=== PATIENT | female | born 1985 | race Caucasian/White ===

== ENCOUNTER 2016-06-28 07:33 | Emergency (ER) | payer SELFPAY ==
[~2016-06-28] VITALS: Ht 162.6 cm; Wt 61.7 kg
[~2016-06-28 07:33] MED LIST: HYDR-971 PO; NITR100C62 PO
[2016-06-28] MEDS ORDERED: NAPROXEN 500 MG TABLET PO STA (07:49)
--- NOTE | 2016-06-28 07:53 | PHYS DOC ---
Past Medical History Past Medical History: UTI Past Surgical History: Other Additional Past Surgical Histo: Alcohol Use: None Drug Use: None Adult General Chief Complaint Chief Complaint: FLANK PAIN HPI HPI Patient is a 30 year old female with history of UTIs and kidney stones presents today with urgency with no frequency or dysuria that began a month ago and right flank pain. Patient denies any fever nausea vomiting. Denies any hematuria. Denies any chance she is . She states she believes she has a UTI. She states she had her last UTI in March and she was treated and symptoms were gone. She states this does not feel like her regular kidney stone pain. Patient would like to be checked for yeast infection as well. She denies any concerns for STDs, she states she's had intermittent white discharge for 1 month. she states she hates water and does not drink much of it. Review of Systems Review of Systems Constitutional: see HPI Eyes: Denies change in visual acuity, redness, or eye pain [] HENT: Denies nasal congestion or sore throat [] Respiratory: Denies cough or shortness of breath [] Cardiovascular: No additional information not addressed in HPI [] GI:see hPI :urgency Musculoskeletal: Denies back pain or joint pain [] Integument: Denies rash or skin lesions [] Neurologic: Denies headache, focal weakness or sensory changes [] Endocrine: Denies polyuria or polydipsia [] Current Medications Current Medications Current Medications Medications (Trade) Dose Ordered Sig/Charla Start Time Stop Time Status Last Admin Dose Admin Naproxen (Naprosyn) 500 mg 1X STAT 06/28/16 07:49 06/28/16 08:08 DC 06/28/16 09:00 500 MG Phenazopyridine HCl (Pyridium) 200 mg 1X ONCE 06/28/16 08:00 06/28/16 08:08 DC 06/28/16 09:00 200 MG Allergies Allergies Allergies Coded Allergies Type Severity Reaction Last Updated Verified No Known Drug Allergies 04/01/16 No Physical Exam Physical Exam Constitutional: Well developed, well nourished, no acute distress, non-toxic appearance. [] HENT: Normocephalic, atraumatic, bilateral external ears normal, oropharynx moist, no oral exudates, nose normal. [] Eyes: PERRLA, EOMI, conjunctiva normal, no discharge. [] Neck: Normal range of motion, no tenderness, supple, no stridor. [] Cardiovascular:Heart rate regular rhythm, no murmur [] Lungs & Thorax: Bilateral breath sounds clear to auscultation [] Abdomen: Bowel sounds normal, soft, no tenderness, no masses, no pulsatile masses. [] Skin: Warm, dry, no erythema, no rash. [] Back: No tenderness, no CVA tenderness. [] Extremities: No tenderness, no cyanosis, no clubbing, ROM intact, no edema. [] Neurologic: Alert and oriented X 3, normal motor function, normal sensory function, no focal deficits noted. [] Psychologic: Affect normal, judgement normal, mood normal. [] Current Patient Data Vital Signs Vital Signs Date Time Temp Pulse Resp B/P Pulse Ox O2 Delivery O2 Flow Rate FiO2 06/28/16 07:55 97.7 75 18 95 Room Air 97.7 Lab Values Laboratory Tests Test 06/28/16 07:41 Urine Collection Type Unknown Urine Color Yellow Urine Clarity Clear Urine pH 5.5 Urine Specific [place] 1.015 Urine Protein Negativemg/dL (NEG-TRACE) Urine Glucose (UA) Negativemg/dL (NEG) Urine Ketones (Stick) Negativemg/dL (NEG) Urine Blood Negative (NEG) Urine Nitrite Negative (NEG) Urine Bilirubin Negative (NEG) Urine Urobilinogen Dipstick 0.2mg/dL (0.2 mg/dL) Urine Leukocyte Esterase Negative (NEG) Urine RBC 0/HPF (0-2) Urine WBC 0/HPF (0-4) Urine Squamous Epithelial Cells Mod/LPF Urine Bacteria 0/HPF (0-FEW) Urine Mucus Slight/LPF Urine Test Negative (NEG) Microbiology 06/28/16 Wet Prep - Final, Complete Microbiology 06/28/16 Wet Prep - Final, Complete EKG EKG [] Radiology/Procedures Radiology/Procedures [] Course & Med Decision Making Course & Med Decision Making Pertinent Labs and Imaging studies reviewed. (See chart for details) Patient presents today with a UTI symptoms of urgency no frequency or dysuria. She is also complaining of right flank pain. Negative urine hCG, urine analysis is negative for infection, no blood in her urine. Wet prep is negative for any acute findings. I highly suspect patient's right flank pain is mostly skeletal. Patient herself states she never drinks water. Encouraged her to go home and push fluids. Discharged with Pyridium naproxen and Flexeril. We did talk about the possibility of CT of the abdomen and pelvic. Patient has stated the pain she has does not feel like her kidney stone pain. Anabell Disclaimer Anabell Disclaimer This electronic medical record was generated, in whole or in part, using a voice recognition dictation system. Departure Departure Impression: Primary Impression: Urgency of urination Additional Impression: Right flank pain Disposition: HOME, SELF-CARE Condition: STABLE Referrals: NO PCP (PCP) follow up with your doctor in one week Patient Instructions: Flank Pain, [id number] Additional Instructions: You were seen for urgency and right flank pain. Your urine has no infection. You do not have Bacterial vaginosis nor yeast infection. Push fluids. Take the prescribed medicines as needed for pain. Follow up with your doctor in one week if symptoms continue. Scripts Cyclobenzaprine Hcl 10 Mg Tablet1 Tab PO TID #30 TAB Prov:WANDA SORIANO APRN 06/28/16 Naproxen 500 Mg Tablet.dr1 Tab PO BID #60 TAB Ref 2 Prov:WANDA SORIANO APRN 06/28/16 Phenazopyridine Hcl (Pyridium)200 Mg [id number] Mg PO TID #9 TAB Prov:WANDA SORIANO APRN 06/28/16 Problem Qualifiers WANDA SORIANO APRN Jun 28, 2016 07:52
[2016-06-28 07:55] VITALS: BP 121/65
[2016-06-28] MEDS ORDERED: PHENAZOPYRIDINE 200 MG TABLET. PO ONE (08:00)
[2016-06-28 08:04] LABS: BILIRUBIN,URINE NEGATIVE (NEG); GLUCOSE,URINE NEGATIVE (NEG); NITRITE,URINE NEGATIVE (NEG); PH,URINE 5.5; PROTEIN,URINE NEGATIVE (NEG-TRACE); UROBILINOGEN,URINE 0.2 mg/dL (0.2 mg/dL)
[2016-06-28 08:10] LABS: BACTERIA,URINE 0 /HPF (0-FEW); RBC,URINE 0 /HPF (0-2); SQUAMOUS EPITHELIAL CELL,UR MOD /LPF; WBC,URINE 0 /HPF (0-4)
[2016-06-28 08:18] LABS: NEG OBC UR NEG; POS OBC UR POS
[2016-06-28] MEDS ORDERED: NAPR500T8 PO (09:11)
[2016-06-28] MEDS ORDERED: PHEN-318 PO (09:11)
[2016-06-28] MEDS ORDERED: CYCL10TA2 PO (09:11)
== END 2016-06-28 09:18 | disposition home or self-care (01) ==
LOC: ER 07:33
DX: R39.15 Urgency of urination (principal); R10.9 Unspecified abdominal pain; Z87.442 Personal history of urinary calculi; Z87.440 Personal history of urinary (tract) infections
CPT/HCPCS: 81001; 81025; 87491; 87591; 99284; Q0111

== ENCOUNTER 2016-09-28 08:02 | Emergency (ER) | payer OTHER ==
[~2016-09-28] VITALS: Ht 162.6 cm; Wt 62.3 kg
[~2016-09-28 08:02] MED LIST changes: +CYCL10TA2 PO; +NAPR500T8 PO; +PHEN-318 PO
[2016-09-28 08:33] VITALS: BP 144/76
[2016-09-28] MEDS ORDERED: CYCL10TA2 PO (09:06)
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
== END 2016-09-28 09:26 | disposition home or self-care (01) ==
LOC: ER 08:02
DX: S16.1XXA Strain of muscle, fascia and tendon at neck level, initial encounter (principal); S29.012A Strain of muscle and tendon of back wall of thorax, initial encounter; M25.512 Pain in left shoulder; R07.89 Other chest pain; V89.2XXA Person injured in unspecified motor-vehicle accident, traffic, initial encounter; Y93.89 Activity, other specified; Y99.8 Other external cause status; Y92.89 Other specified places as the place of occurrence of the external cause
CPT/HCPCS: 99283

== ENCOUNTER 2017-04-01 07:12 | Emergency (ER) | payer OTHER ==
[~2017-04-01] VITALS: Ht 162.6 cm; Wt 61.2 kg
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
[2017-04-01 08:21] LABS: BACTERIA,URINE FEW /HPF (0-FEW); BILIRUBIN,URINE NEGATIVE (NEG); GLUCOSE,URINE NEGATIVE (NEG); NITRITE,URINE NEGATIVE (NEG); PROTEIN,URINE NEGATIVE (NEG-TRACE); RBC,URINE 0 /HPF (0-2); SQUAMOUS EPITHELIAL CELL,UR FEW /LPF; UROBILINOGEN,URINE 0.2 mg/dL (0.2 mg/dL)
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
[2017-04-01] MEDS ORDERED: IBUP-1060 PO (08:30)
[2017-04-01] MEDS ORDERED: NITR100C62 PO (08:30)
[2017-04-01] MEDS ORDERED: CYCL5TAB PO (08:30)
[2017-04-01 08:47] VITALS: BP 120/87
[2017-05-31] MEDS ORDERED: PROM25SU32 PO (09:40)
== END 2017-04-01 08:50 | disposition home or self-care (01) ==
LOC: ER 07:12
DX: S16.1XXA Strain of muscle, fascia and tendon at neck level, initial encounter (principal); N39.0 Urinary tract infection, site not specified; V43.52XA Car driver injured in collision with other type car in traffic accident, initial encounter; Y93.I9 Activity, other involving external motion; Y92.410 Unspecified street and highway as the place of occurrence of the external cause; Y99.8 Other external cause status
CPT/HCPCS: 72040; 81001; 81025; 99285

== ENCOUNTER 2017-05-29 07:42 | Emergency (ER) | payer OTHER ==
[~2017-05-29 07:42] MED LIST changes: +CYCL5TAB PO; +IBUP-1060 PO
--- NOTE | 2017-05-29 09:08 | PHYS DOC ---
Past Medical History Past Medical History: UTI Past Surgical History: Other Additional Past Surgical Histo: Alcohol Use: Occasionally Drug Use: None Adult General Chief Complaint Chief Complaint: VOMITING IN HPI HPI Patient is a 31 year old female presents the ED complaining of abdominal cramping times one day. Patient states she has also been vomiting for the last 5 days. Nonbloody, nonbilious. Describes the pain as cramping. Rates the pain as 5/10. States that it is intermittent. Denies chest pain, shortness of breath, vaginal bleeding/discharge, dysuria, hematuria, weakness, or headache. Review of Systems Review of Systems Constitutional: Denies fever or chills [] Eyes: Denies change in visual acuity, redness, or eye pain [] HENT: Denies nasal congestion or sore throat [] Respiratory: Denies cough or shortness of breath [] Cardiovascular: No additional information not addressed in HPI [] GI: Complains of abdominal cramping and vomiting. Denies bloody stools or diarrhea [] : Denies dysuria or hematuria [] Musculoskeletal: Denies back pain or joint pain [] Integument: Denies rash or skin lesions [] Neurologic: Denies headache, focal weakness or sensory changes [] Endocrine: Denies polyuria or polydipsia [] All other systems were reviewed and found to be within normal limits, except as documented in this note. Current Medications Current Medications Current Medications Medications (Trade) Dose Ordered Sig/Charla Start Time Stop Time Status Last Admin Dose Admin Ondansetron HCl (Zofran) 4 mg 1X ONCE 05/29/17 10:30 05/29/17 10:31 DC 05/29/17 10:31 4 MG Potassium Chloride (Klor-Con) 40 meq 1X ONCE 05/29/17 10:15 05/29/17 10:16 DC Sodium Chloride 1,000 ml @ 1,000 mls/hr 1X ONCE 05/29/17 10:15 05/29/17 11:14 DC 05/29/17 10:32 1,000 MLS/HR Allergies Allergies Allergies Coded Allergies Type Severity Reaction Last Updated Verified No Known Drug Allergies 04/01/16 No Physical Exam Physical Exam Constitutional: Well developed, well nourished, no acute distress, non-toxic appearance. [] HENT: Normocephalic, atraumatic, bilateral external ears normal, oropharynx moist, no oral exudates, nose normal. [] Eyes: PERRLA, EOMI, conjunctiva normal, no discharge. [] Neck: Normal range of motion, no tenderness, supple, no stridor. [] Cardiovascular:Heart rate regular rhythm, no murmur [] Lungs & Thorax: Bilateral breath sounds clear to auscultation [] Abdomen: Bowel sounds normal, soft, no tenderness, no masses, no pulsatile masses. [] Refused exam. Skin: Warm, dry, no erythema, no rash. [] Back: No tenderness, no CVA tenderness. [] Extremities: No tenderness, no cyanosis, no clubbing, ROM intact, no edema. [] Neurologic: Alert and oriented X 3, normal motor function, normal sensory function, no focal deficits noted. [] Psychologic: Affect normal, judgement normal, mood normal. [] Current Patient Data Vital Signs Vital Signs Date Time Temp Pulse Resp B/P (MAP) Pulse Ox O2 Delivery O2 Flow Rate FiO2 05/29/17 10:44 98.5 91 17 119/75 (90) 100 Room Air 98.5 Lab Values Laboratory Tests Test 05/29/17 08:30 05/29/17 08:55 05/29/17 09:01 White Blood Count 19.1 x10^3/uL (4.0-11.0) H Red Blood Count 5.16 x10^6/uL (3.50-5.40) Hemoglobin 15.7 g/dL (12.0-15.5) H Hematocrit 47.4 % (36.0-47.0) H Mean Corpuscular Volume 92 fL (79-100) Mean Corpuscular Hemoglobin 30 pg (25-35) Mean Corpuscular Hemoglobin Concent 33 g/dL (31-37) Red Cell Distribution Width 13.1 % (11.5-14.5) Platelet Count 456 x10^3/uL (140-400) H Neutrophils (%) (Auto) 86 % (31-73) H Lymphocytes (%) (Auto) 9 % (24-48) L Monocytes (%) (Auto) 5 % (0-9) Eosinophils (%) (Auto) 0 % (0-3) Basophils (%) (Auto) 0 % (0-3) Neutrophils # (Auto) 16.3 x10^3uL (1.8-7.7) H Lymphocytes # (Auto) 1.7 x10^3/uL (1.0-4.8) Monocytes # (Auto) 1.0 x10^3/uL (0.0-1.1) Eosinophils # (Auto) 0.0 x10^3/uL (0.0-0.7) Basophils # (Auto) 0.1 x10^3/uL (0.0-0.2) Segmented Neutrophils % 89 % (35-66) H Band Neutrophils % 2 % (0-9) Lymphocytes % 6 % (24-48) L Monocytes % 3 % (0-10) Platelet Estimate Increased (ADEQUATE) Maternal Serum HCG Beta Subunit 67685 mIU/mL (0-5) H Sodium Level 139 mmol/L (136-145) Potassium Level 3.3 mmol/L (3.5-5.1) L Chloride Level 100 mmol/L (98-107) Carbon Dioxide Level 25 mmol/L (21-32) Anion Gap 14 (6-14) Blood Urea Nitrogen 13 mg/dL (7-20) Creatinine 0.9 mg/dL (0.6-1.0) Estimated GFR (Cockcroft-Gault) 73.0 BUN/Creatinine Ratio 14 (6-20) Glucose Level 123 mg/dL (70-99) H Calcium Level 11.1 mg/dL (8.5-10.1) H Total Bilirubin 0.7 mg/dL (0.2-1.0) Aspartate Amino Transferase (AST) 14 U/L (15-37) L Alanine Aminotransferase (ALT) 11 U/L (14-59) L Alkaline Phosphatase 68 U/L (46-116) Total Protein 9.1 g/dL (6.4-8.2) H Albumin 5.3 g/dL (3.4-5.0) H Albumin/Globulin Ratio 1.4 (1.0-1.7) Urine Collection Type Void Urine Color Andra Urine Clarity Cloudy Urine pH 8.0 Urine Specific [place] >=1.030 Urine Protein 100 mg/dL (NEG-TRACE) Urine Glucose (UA) Negative mg/dL (NEG) Urine Ketones (Stick) >=80 mg/dL (NEG) Urine Blood Negative (NEG) Urine Nitrite Negative (NEG) Urine Bilirubin Negative (NEG) Urine Urobilinogen Dipstick 0.2 mg/dL (0.2 mg/dL) Urine Leukocyte Esterase Small (NEG) Urine RBC Rare /HPF (0-2) Urine WBC 1-4 /HPF (0-4) Urine Squamous Epithelial Cells Many /LPF Urine Bacteria Mod /HPF (0-FEW) Urine Mucus Marked /LPF Urine Yeast Present /HPF POC Urine HCG, Qualitative Hcg positive (Negative) Laboratory Tests 05/29/17 08:30 Laboratory Tests 05/29/17 08:30 EKG EKG [] Radiology/Procedures Radiology/Procedures PROCEDURE: OB <14 WKS W/TV OB <14 WKS W/TV Clinical Indication: 31-year-old female with LLQ pain/NAUSEA/VOMITING in Comparison: None. Technique: Transverse and longitudinal sonography of the pelvis is performed utilizing transabdominal and transvaginal transducers. Findings: Transabdominal imaging demonstrates an anteflexed uterus measuring 8.2 x 5.0 x 5.3 cm. An intrauterine fluid collection is seen suggestive of a gestational sac. Neither ovary is visualized. No free fluid is seen. Transvaginal imaging redemonstrates an intrauterine fluid collection consistent with a gestational sac. A yolk sac is visualized within the gestational sac, as well as a pole measuring 0.4 cm, corresponding with an ultrasound gestational age of 6 weeks 0 days. A heart rate of 107 bpm is documented. No myometrial or cervical abnormality is seen in the provided images. The right ovary is visualized measuring 2.6 x 1.2 x 1.4 cm, with internal blood flow documented. The left ovary is visualized measuring 3.9 x 2.2 x 1.5 cm, with internal blood flow documented. A rounded hypoechoic mass is seen extending off the inferior left ovary measuring 2.2 cm. Some internal blood flow is documented. No extraovarian adnexal masses are seen. No free fluid is seen within the provided images. IMPRESSION: 1. Single live intrauterine gestation with ultrasound gestational age of 6 weeks 0 days. heart rate of 107 bpm documented. 2. Hypoechoic, possibly solid appearing mass in the inferior left ovary. While this may represent the corpus luteal cyst, it is not a typical appearance. No adnexal mass seen. Consider follow-up ultrasound to document stability/resolution.[] Course & Med Decision Making Course & Med Decision Making Pertinent Labs and Imaging studies reviewed. (See chart for details) []Discussed lab and ultrasound findings with patient. Patient has been vomiting for the last 5 days. States she is feeling much better and wants to go home. Elevated white count seems likely due to stress reaction. Patient given 2 L of fluids and antinausea medication in the ED. Patient tolerating by mouth. Abdomen is soft nontender nondistended. No peritoneal signs. Discussed the importance for follow-up with OBSTETRICIAN GYNECOLOGIST in 1-2 days. Patient told that she needs repeat ultrasound imaging and following of her beta hCG quantitative this next week. Patient sitting in room eating Jell-O laughing and talking on phone. Discussed the importance of follow-up and reasons to return to the ED. Patient understands and agrees with plan. Discussed case with attending physician. Agrees with evaluation and plan. Dragon Disclaimer Dragon Disclaimer This electronic medical record was generated, in whole or in part, using a voice recognition dictation system. Departure Departure Impression: Primary Impression: Vomiting during Additional Impression: Urinary tract infection Disposition: 01 HOME, SELF-CARE Condition: IMPROVED Referrals: NO PCP (PCP) JAYLAN PIERSON MD Patient Instructions: Abdominal Pain During Scripts Ondansetron (ZOFRAN ODT) 4 Mg Tab.rapdis 1 TAB SL Q8HRS, #10 TAB Prov: ZABRINA ALLEN 05/29/17 Nitrofurantoin Monohyd/M-Cryst (MACROBID 100 MG CAPSULE) 100 Mg Capsule 1 CAP PO BID, #14 CAP Prov: ZABRINA ALLEN 05/29/17 Problem Qualifiers ZABRINA ALLEN May 29, 2017 09:07
[2017-05-29] MEDS ORDERED: IV NORMAL SALINE 1000ML BAG 1,000 ML IV SCH (09:15)
[2017-05-29] MEDS ORDERED: ONDANSETRON PF 4 MG/2 ML VIAL. IV ONE ×2 (09:15→10:30)
[2017-05-29 09:34] LABS: BASO # 0.1 x10^3/uL (0.0-0.2); BASO % 0 % (0-3); EOS % 0 % (0-3); HEMATOCRIT 47.4 % (36.0-47.0); HEMOGLOBIN 15.7 g/dL (12.0-15.5); LYMPH # 1.7 x10^3/uL (1.0-4.8); LYMPH % 9 % (24-48); MEAN CORPUSCULAR HEMOGLOBIN 30 pg (25-35); MEAN CORPUSCULAR HGB CONC 33 g/dL (31-37); MEAN CORPUSCULAR VOLUME 92 fL (79-100); MONO % 5 % (0-9); NEUT % 86 % (31-73); PLATELET COUNT 456 x10^3/uL (140-400); RED BLOOD COUNT 5.16 x10^6/uL (3.50-5.40); RED CELL DISTRIBUTION WIDTH 13.1 % (11.5-14.5); WHITE BLOOD COUNT 19.1 x10^3/uL (4.0-11.0)
[2017-05-29 09:40] LABS: BILIRUBIN,URINE NEGATIVE (NEG); GLUCOSE,URINE NEGATIVE (NEG); NITRITE,URINE NEGATIVE (NEG); PROTEIN,URINE 100 mg/dL (NEG-TRACE); UROBILINOGEN,URINE 0.2 mg/dL (0.2 mg/dL)
[2017-05-29 09:42] LABS: CALCIUM 11.1 mg/dL (8.5-10.1); CREATININE 0.9 mg/dL (0.6-1.0); POTASSIUM 3.3 mmol/L (3.5-5.1)
[2017-05-29 09:43] LABS: BACTERIA,URINE MOD /HPF (0-FEW); RBC,URINE RARE /HPF (0-2); SQUAMOUS EPITHELIAL CELL,UR MANY /LPF; YEAST,URINE PRESENT /HPF
[2017-05-29 09:47] LABS: ALBUMIN 5.3 g/dL (3.4-5.0); ALBUMIN/GLOBULIN RATIO 1.4 (1.0-1.7); TOTAL BILIRUBIN 0.7 mg/dL (0.2-1.0); TOTAL PROTEIN 9.1 g/dL (6.4-8.2)
--- NOTE | 2017-05-29 10:06 | RAD ---
OB <14 WKS W/TV Clinical Indication: 31-year-old female with LLQ pain/NAUSEA/VOMITING in Comparison: None. Technique: Transverse and longitudinal sonography of the pelvis is performed utilizing transabdominal and transvaginal transducers. Findings: Transabdominal imaging demonstrates an anteflexed uterus measuring 8.2 x 5.0 x 5.3 cm. An intrauterine fluid collection is seen suggestive of a gestational sac. Neither ovary is visualized. No free fluid is seen. Transvaginal imaging redemonstrates an intrauterine fluid collection consistent with a gestational sac. A yolk sac is visualized within the gestational sac, as well as a pole measuring 0.4 cm, corresponding with an ultrasound gestational age of 6 weeks 0 days. A heart rate of 107 bpm is documented. No myometrial or cervical abnormality is seen in the provided images. The right ovary is visualized measuring 2.6 x 1.2 x 1.4 cm, with internal blood flow documented. The left ovary is visualized measuring 3.9 x 2.2 x 1.5 cm, with internal blood flow documented. A rounded hypoechoic mass is seen extending off the inferior left ovary measuring 2.2 cm. Some internal blood flow is documented. No extraovarian adnexal masses are seen. No free fluid is seen within the provided images. IMPRESSION: 1. Single live intrauterine gestation with ultrasound gestational age of 6 weeks 0 days. heart rate of 107 bpm documented. 2. Hypoechoic, possibly solid appearing mass in the inferior left ovary. While this may represent the corpus luteal cyst, it is not a typical appearance. No adnexal mass seen. Consider follow-up ultrasound to document stability/resolution.
[2017-05-29] MEDS ORDERED: IV NORMAL SALINE 1000ML BAG 1,000 ML IV ONE (10:15)
[2017-05-29] MEDS: POTASSIUM CHLORIDE 20 MEQ TABLET.ER. PO ONE ×2 (10:30→10:32)
[2017-05-29 10:44] VITALS: BP 119/75
[2017-05-29] MEDS ORDERED: ONDA4TAB10 SL (11:14)
[2017-05-29] MEDS ORDERED: NITR100C62 PO (11:14)
[2017-05-29 11:18] LABS: PLT ESTIMATE INCREASED (ADEQUATE)
[2017-05-31] MEDS ORDERED: PROM25SU32 PO (09:40)
== END 2017-05-29 11:45 | disposition home or self-care (01) ==
LOC: ER 07:42
DX: O23.41 Unspecified infection of urinary tract in pregnancy, first trimester (principal); O21.9 Vomiting of pregnancy, unspecified; Z3A.01 Less than 8 weeks gestation of pregnancy
CPT/HCPCS: 36415; 76801; 76817; 80053; 81001; 81025; 84702; 85007; 85025; 86900; 86901; 96361; 96374; 96376; 99285; J2405; J7030

== ENCOUNTER → 2020-04-02 | Outpatient (CLI) | payer MEDICAID ==
[2017-07-04 19:30] VITALS: BP 114/73
[~2020-04-02] MED LIST changes: +HYDR-3164 PO; -HYDR-971 PO; +ONDA4TAB10 SL; +PROM25SU32 PO
--- NOTE | 2020-04-02 15:38 | KCIC ---
CT Abdomen and Pelvis without contrast History: Right flank pain, urinary tract infection, urinary urgency, history of stones, back pain Technique: Noncontrast CT imaging was performed of the abdomen and pelvis. Multiplanar images are reviewed. Exposure: One or more of the following individualized dose reduction techniques were utilized for this examination: 1. Automated exposure control 2. Adjustment of the mA and/or kV according to patient size 3. Use of iterative reconstruction technique. Comparison: February 13, 2013 Findings: No convincing ureteral calculus is identified of either side. There is no hydronephrosis of either kidney. There is very small about 1 mm mid to inferior right kidney renal calculus. There is also small about 1 mm mid to superior left renal calculus. Accurate evaluation of abdominal visceral organs is limited without intravenous contrast. There is no obvious abnormality of the spleen, liver, or pancreas. There is no adrenal nodularity. Gallbladder is present without obvious intraluminal abnormality by CT. Accurate evaluation of bowel is limited without oral contrast. There is no significant free air, free fluid, bowel dilatation. There is no significant inflammatory type change about the bowel. There is retained stool greater of the right colon. There is mild colonic diverticulosis. Stomach is somewhat distended. There is likely stool distended appendix, caliber somewhat prominent about 0.7 cm, no significant adjacent inflammatory change. There is a 2.7 cm likely cyst of the left adnexa. There is a very small fat-containing umbilical hernia, no internal bowel. Impression: 1. No hydronephrosis is identified. There are very small bilateral renal calculi. No convincing ureteral calculus is identified. 2. Appendix caliber is somewhat prominent and distended with stool although no adjacent inflammatory-type change. Correlation with clinical symptoms and laboratory findings is advised. 3. There is likely cyst of the left adnexa. 4. There is mild colonic diverticulosis. Electronically signed by: Brody Maloney MD (04/02/2020 3:35 PM) [facility]
== END ==
LOC: KCIC CT 14:44
PROVIDERS: ATTEND Nurse Practitioner Family
DX: K57.30 Diverticulosis of large intestine without perforation or abscess without bleeding (principal); N20.0 Calculus of kidney
CPT/HCPCS: 74176

== ENCOUNTER → 2021-07-24 | Outpatient (CLI) | payer MEDICAID ==
[2017-07-04 19:30] VITALS: BP 114/73
[~2021-07-24] MED LIST changes: +CYCL10TA19 PO; -CYCL10TA2 PO
--- NOTE | 2021-07-24 15:37 | RAD ---
EXAM: Pelvic sonogram. HISTORY: Pelvic pressure. TECHNIQUE: Transabdominal and transvaginal sonographic imaging of the pelvis performed. COMPARISON: None. FINDINGS: The uterus measures 10.0 x 5.1 x 4.9 cm. The endometrial stripe measures 1.1 cm in thicknes s. There is a small amount of fluid within the cervical canal. The ovaries are normal in size and dem onstrate normal blood flow. There is a 2.6 cm cyst with internal septation or 2 adjacent cysts within the right ovary. There is a 1.7 cm hemorrhagic left ovarian cyst. There is no pelvic free fluid. IMPRESSION: 1. 2.6 cm right ovarian cyst with internal septation or 2 adjacent cysts. 2. 1.7 cm left ovarian hemorrhagic cyst. 3. Small amount of fluid within the cervical canal. 4. Prominent endometrial stripe, within physiologic limits for a premenopausal female. Electronically signed by: Minnie Forde MD (07/24/2021 3:35 PM) [id number]
== END ==
LOC: US 15:00
PROVIDERS: ATTEND Nurse Practitioner Family
DX: N83.201 Unspecified ovarian cyst, right side (principal); N83.202 Unspecified ovarian cyst, left side; N94.89 Other specified conditions associated with female genital organs and menstrual cycle
CPT/HCPCS: 76830; 76856

== ENCOUNTER → 2021-09-18 | Outpatient (CLI) | payer MEDICAID ==
[2017-07-04 19:30] VITALS: BP 114/73
--- NOTE | 2021-09-18 17:05 | CARD ---
MR#: [id number] Date of Study: 09/18/2021 Ordering Physician: LC HAWKINS, Referring Physician: CL HAWKINS, Tech: Matt Philip [facility] APPROVED REPORT EXAM: Two-dimensional and M-mode echocardiogram with Doppler and color Doppler. Other Information Quality : GoodHR: 76bpm Rhythm : NSR INDICATION Chest Pain Murmur RISK FACTORS Family History 2D DIMENSIONS Left Atrium(2D)2.9 (1.6-4.0cm)IVSd0.7 (0.7-1.1cm) Aortic Root(2D)2.5 (2.0-3.7cm)LVDd4.5 (3.9-5.9cm) PWd0.7 (0.7-1.1cm)LVDs3.3 (2.5-4.0cm) FS (%) 27.6 %SV49.7 ml Aortic Valve AoV Peak Otto.129.3cm/sAoV VTI28.7cm AO Peak GR.6.7mmHgLVOT Peak Otto.108.8cm/s AO Mean GR.4mmHg Mitral Valve MV E Lqakulxx98.6cm/sMV E Peak Gr.6mmHg MV DECEL [id number] A Auquqcpp42.4cm/s MV E Mean Gr.2mmHgE/A Ratio1.2 Pulmonary Valve PV Peak Ynrbboib048.7cm/s Tricuspid Valve TR P. [id number]/sTR Peak Gr.15mmHg Pulmonary Vein S1 Fpicfdvx83.4cm/sD2 Pjapkrsx89.0cm/s LEFT VENTRICLE The left ventricle is normal size. There is normal left ventricular wall thickness. The left ventricu lar systolic function is normal and the ejection fraction is within normal range. The Ejection Fracti on is 50-55%. There is normal LV segmental wall motion. No left ventricle thrombus noted on this stud y. There is no ventricular septal defect visualized. There is no left ventricular aneurysm. There is no mass noted in the left ventricle. RIGHT VENTRICLE The right ventricle is normal size. There is normal right ventricular wall thickness. The right ventr icular systolic function is normal. ATRIA The left atrium size is normal. The right atrium size is normal. AORTIC VALVE The aortic valve is normal in structure and function. Doppler and Color Flow revealed no significant aortic regurgitation. There is no significant aortic valvular stenosis. There is no aortic valvular v egetation. MITRAL VALVE The mitral valve is normal in structure and function. There is no evidence of mitral valve prolapse. There is no mitral valve stenosis. Doppler and Color Flow revealed no mitral valve regurgitation note d. TRICUSPID VALVE The tricuspid valve is normal in structure and function. Doppler and Color Flow revealed trace tricus pid regurgitation. The PA pressure was estimated at 25 mmHg. There is no tricuspid valve prolapse or vegetation. There is no tricuspid valve stenosis. PULMONIC VALVE The pulmonary valve is normal in structure and function. Doppler and Color Flow revealed no pulmonic valvular regurgitation. There is no pulmonic valvular stenosis. GREAT VESSELS The aortic root is normal in size. The ascending aorta is normal in size. The pulmonary artery is nor mal. The IVC is normal in size and collapses >50% with inspiration. PERICARDIAL EFFUSION There is no pleural effusion. There is no evidence of significant pericardial effusion. Critical Notification Critical Value: No <Conclusion> The left ventricle is normal size. The left ventricular systolic function is normal and the ejection fraction is within normal range. The Ejection Fraction is 50-55%. Doppler and Color Flow revealed no significant aortic regurgitation. There is no significant aortic valvular stenosis. Doppler and Color Flow revealed no mitral valve regurgitation noted. Doppler and Color Flow revealed trace tricuspid regurgitation. The PA pressure was estimated at 25 mmHg. Signed by : Lc Hawkins MD Electronically Approved : 09/18/2021 17:04:41
--- NOTE | 2021-09-18 17:42 | CARD ---
MR#: [id number] Date of Study: 09/18/2021 Ordering Physician: EARLE HAWKINS, Referring Physician: EARLE HAWKINS, Tech: Matt Philip [facility] APPROVED REPORT INDICATION Chest Pain Murmur RISK FACTORS Family History Pre-test likelihood of coronary disease : low Reason : Patient complained of pain PROCEDURE The patient underwent an Exercise Stress Test using the Romario Protocol. Blood pressure, heart rate, a nd EKG were monitored. An Echocardiogram was performed by outside plant technician in four stages in quad fashion. At peak stress four se lected images were obtained and placed side by side with resting images for comparison. STRESS ECHO FINDINGS The resting Echocardiogram showed normal left ventricular systolic contractility with an estimated Ej ection Fraction of about 54 %. The Stress Echocardiogram showed normal augmentation of myocardial wall segments using a 16 segment m michael. The Stress Echocardiogram left ventricular systolic contractility has an estimated Ejection Fraction of about 64%. Test Type: Exercise Stress Nurse/Tech: Consuelo Lucas RN Test Indications: Chest pain/murmur, family history of heart disease Cardiac History and Allergies: Family history Medications: see EMR Medical History: see EMR Resting ECG: SR Resting Heart Rate: 81 bpm Resting Blood Pressure: 114/57mmHg Pretest Chest Pain: No chest pain Nurse/Tech Notes S1,S2 and lungs clear to auscultation. Stress Symptoms Fatigue,diaphoretic POST EXERCISE Reason for Termination: Reached target heart rate Target HR: Yes Max HR: 175 bpm 95% of Maximum Predicted HR: 184 bpm Exercise duration: 9:59 min:sec, 4 Stage Exercise capacity: 12.8METs Max Blood Pressure: 139/57mmHg Blood Pressure response to exercise: Normal blood pressure response during stress. Heart Rate response to exercise: WNL Chest Pain: No. Arrhythmia: No. ST Change: No. INTERPRETATION Stress EKG Conclusion: The resting EKG showed a sinus rhythm with mild nonspecific ST segment changes . The stress EKG showed no significant changes from baseline. No EKG evidence of stress-induced ischemia. <Conclusion> Good exercise tolerance with the patient walking for 9 minutes and 59 seconds on a Romario protocol. No chest pain with exertion No EKG evidence of stress-induced ischemia or arrhythmias. Normal LV systolic function at rest. Normal LV response to exertion with no regional wall motion abnormalities. Low risk treadmill stress echo. Signed by : Earle Hawkins MD Electronically Approved : 09/18/2021 17:42:35
== END ==
LOC: ECHO 13:53
PROVIDERS: ATTEND Internal Medicine Cardiovascular Disease
DX: R01.1 Cardiac murmur, unspecified (principal); R07.9 Chest pain, unspecified
CPT/HCPCS: 93017; 93306; 93350; C8929